=== PATIENT | male | born 1990 | race Hispanic/Latino ===

== ENCOUNTER 2016-11-16 21:33 | Emergency (ER) | payer BC ==
[~2016-11-16] VITALS: Ht 177.8 cm; Wt 92.8 kg
[2016-11-16 23:06] VITALS: BP 164/95
== END 2016-11-16 23:06 | disposition home or self-care (01) ==
LOC: EXP 21:33 → EME 21:33 → EXP 23:06
DX: M67.471 Ganglion, right ankle and foot (principal)
CPT/HCPCS: 99281; 99284

== ENCOUNTER 2018-02-13 01:37 | Emergency (ER) | payer BC ==
[~2018-02-13] VITALS: Ht 177.8 cm; Wt 83.7 kg
[2018-02-13 01:56] LABS: HEMATOCRIT 44.9 % (38.0-50.0); HEMOGLOBIN 15.1 G/DL (12.5-16.6); MCH 27.8 PG (29.0-34.0); MCHC 33.6 G/DL (30.0-36.0); MCV 82.5 FL (86-99); PLATELET COUNT 272 K/uL (156-360); RBC DIS.WIDTH-SD 39.1 % (39-53); RED BLOOD COUNT 5.44 M/uL (4.00-5.50); WHITE BLOOD COUNT 8.3 K/uL (4.1-10.2)
[2018-02-13 02:11] LABS: ALBUMIN 4.6 g/dL (3.2-4.8)
[2018-02-13 02:12] LABS: CHLORIDE 105 mEq/L (99-109); POTASSIUM 3.8 mEq/L (3.7-5.4); SODIUM 140 mEq/L (136-147)
[2018-02-13 02:14] LABS: GLUCOSE 98 mg/dL (70-99); TOTAL PROTEIN 6.9 g/dL (6.4-8.3)
[2018-02-13 02:16] LABS: TOTAL BILIRUBIN 0.4 mg/dL (0.0-1.0)
[2018-02-13 02:17] LABS: ALKALINE PHOSPHATASE 70 IU/L (3-129)
[2018-02-13 02:18] LABS: GFR ESTIMATE (CALCULATED) > 59 mL/min/ (58.99-99999)
[2018-02-13 02:19] LABS: AST (GOT) 19 IU/L (2-34); UREA NITROGEN (BUN) 17 mg/dL (9-23)
[2018-02-13 02:21] LABS: ALT (GPT) 24 IU/L (3-49)
[2018-02-13 02:50] LABS: LIPASE 23 U/L (1.0-51.0)
[2018-02-13] MEDS ORDERED: ZOFRAN4 MG PO (04:09)
[2018-02-13] MEDS ORDERED: BENTYL20 MG PO (04:09)
[2018-02-13 05:15] VITALS: BP 130/80
== END 2018-02-13 05:15 | disposition home or self-care (01) ==
LOC: EME 01:37
DX: K52.9 Noninfective gastroenteritis and colitis, unspecified (principal); R93.5 Abnormal findings on diagnostic imaging of other abdominal regions, including retroperitoneum
CPT/HCPCS: 74177; 80053; 81003; 83690; 85027; 99281; 99284; J2405; J7030; S0028